=== PATIENT | female | born 1990 | race Caucasian/White ===

== ENCOUNTER 2017-01-20 09:35 | Inpatient (IN) | payer OTHER ==
[~2017-01-20] VITALS: Ht 160 cm; Wt 65.3 kg
[2017-01-20] VITALS (29 sets, daily range): BP systolic 89–137; BP diastolic 38–93; PULSE 73–116; RESP 16–18; TEMP 98.3–98.7; O2SAT 99–100
[~2017-01-20 09:35] MED LIST: FERR325T72 PO; PREN1CAP17 PO
[2017-01-20] MEDS ORDERED: LACTATED RINGER'S 1000 ML INJ 1,000 ML IV PRN (10:21)
--- NOTE | 2017-01-20 10:29 | PD ---
HPI Chief Complaint Contractions Date Seen: January 20, 2017 Time Seen: 10:15 (Stacey Rogers MD R2) Travel History International Travel<30 Days: No Contact w/Intl Traveler<30Days: No Known Affected Area: No (Stacey Rogers MD R2) History of Present Illness HPI Patient is a 26-year-old presenting at 39/3 weeks gestation based on last menstrual period, confirmed by second trimester ultrasound with VALE of 01/24/17 presenting due to contractions. Contractions are occurring every about every 2 minutes, started at 23:30 yesterday evening. She noticed vaginal bleeding about 2hrs ago. She denies leakage of fluid, endorses movement. care is with [facility]. has been uncomplicated. GBS Positive, pt denies any drug allergies. Pt is Arabic speaking. Para: 1 : 2 (Stacey Rogers MD R2) History Past Medical History Medical History: Denies Significant Hx (Stacey Rogers MD R2) Obstetric History Obstetric History First : , 2 years ago, no complications Current : care with [facility], GBS +, No complications (Stacey Rogers MD R2) Past Surgical History Surgical History: No Previous Surgery (Stacey Rogers MD R2) Family History Family History: Negative (Stacey Rogers MD) Social History Alcohol Use: No Tobacco Use: No Substance Abuse: No (Stacey Rogers MD R2) Allergies-Medications (Allergen,Severity, Reaction): Coded Allergies: No Known Allergies (Unverified , 01/14/17) Home Meds Active Scripts Ferrous Gluconate 325 Mg [id number] Mg PO DAILY #30 TAB Ref 6 Prov:Indy Quintero CNM 11/07/16 W/O A W/ Fe Asparto G (Prenate Pixie 10-0.6-0.4-200 mg)1 Cap Cap1 Cap PO DAILY #30 BOTTLE Ref 11 Prov:Indy Quintero CNMP 08/15/16 Review of Systems ROS Limitations: Language Barrier (Stacey Rogers MD R2) Physical Exam Narrative GENERAL: Well-nourished, well-developed patient. SKIN: Warm and dry. HEAD: Normocephalic and atraumatic. EYES: No scleral icterus. No injection or drainage. ENT: No nasal drainage noted. Mucous membranes pink. Airway patent. NECK: Supple, trachea midline. No JVD. CARDIOVASCULAR: Regular rate and rhythm without murmurs, gallops, or rubs. RESPIRATORY: Breath sounds equal bilaterally. No accessory muscle use. BREASTS: Bilateral exam showed no masses , no retractions, no nipple discharge. ABDOMEN/GI: Abdomen soft, non-tender, bowel sounds present, no rebound, no guarding Gravid to 39 weeks size GENITOURINARY: External Genitalia: intact and normal in appearance Cervix: soft Dilatation: 8cm Effacement:80% Station: -1 Presentation: Vertex Membranes: Intact Uterine Contractions: Q2 minutes FHT's: Category: 1 Baseline: 140 Reactive: + Variability: Moderate Decels: Absent EXTREMITIES: No cyanosis or edema. BACK: Nontender without obvious deformity. No CVA tenderness. NEUROLOGICAL: Awake and alert. Motor and sensory grossly within normal limits. Five out of 5 muscle strength in all muscle groups. Normal speech. (Stacey Rogers MD R2) Data Data Orders Admit To Inpatient (01/20/17 ) Code Status (01/20/17 10:21) Vital Signs (Adult) .Per protocol (01/20/17 10:21) Activity Oob Ad Mia (01/20/17 10:21) Heart (01/20/17 10:21) Amnioinfusion (01/20/17 10:21) Urinary Catheter Management .ONCE (01/20/17 10:21) Diet Npo (01/20/17 Lunch) Lactated Ringer's 1000 Ml Inj (Lr 1000 M (01/20/17 10:21) Lactated Ringer's 1000 Ml Inj (Lr 1000 M (01/20/17 10:21) Sodium Chlorid 0.9% 500 Ml Inj (Ns 500 M (01/20/17 10:30) Sodium Chlor 0.9% 1000 Ml Inj (Ns 1000 M (01/20/17 10:41) Lidocaine 1% Inj (50 Ml) (Xylocaine 1% I (01/20/17 10:30) Citric Acid-Sodium Citrate Liq (Bicitra (01/20/17 10:30) Ondansetron Inj (Zofran Inj) (01/20/17 10:30) Fentanyl Inj (Fentanyl Inj) (01/20/17 10:30) Fentanyl Inj (Fentanyl Inj) (01/20/17 10:30) Penicillin G Potassium Inj (Pfizerpen-G (01/20/17 10:30) Penicillin G Potassium Inj (Pfizerpen-G (01/20/17 14:30) Complete Blood Count With Diff (01/20/17 10:21) Hold Clot (01/20/17 10:21) Abo/Rh Blood Type (01/20/17 10:21) Urinalysis - C+S If Indicated (01/20/17 10:21) Type And Screen (01/20/17 10:21) Resp Oxygen Non Rebreathe Mask (01/20/17 ) ^ Epidural / Intrathecal Infus (01/20/17 10:21) Oxytocin 30 Units-500ml Premix (Pitocin (01/20/17 10:30) Lidocaine 1% Inj (50 Ml) (Xylocaine 1% I (01/20/17 10:30) Light Mineral Oil (Muri-Lube Oil) (01/20/17 10:30) Inpatient Certification (01/20/17 ) (Stacey Rogers MD R2) [facility] Medical Record Reviewed: Yes Interpretation(s) Patient is a 26-year-old presenting at 39/3 weeks gestation with VALE of presenting due to contractions. 1) IUP Category 1 tracing, reassuring Cervix dilated to 8cm, -1 station, 80% effaced Pt desires IV pain medication at this time Routine expectant management Anticipate spontaneous vaginal delivery 2) GBS Positive Pt with no reported medication allergies Will start PCN Will admit patient for expectant management sdw Dr. Landaverde (Stacey Rogers MD R2) Attending Attestation Pt seen and evaluated with resident physician. Agree with above. (Cierra Landaverde MD) Stacey Rogers MD R2 January 20, 2017 10:29 Cierra Landaverde MD January 20, 2017 17:03
[2017-01-20] MEDS ORDERED: PENICILLIN G POTASSIUM INJ 5,000,000 UNITS in SODIUM CHLORIDE 0.9% INJ 100 ML IV ONE (10:30)
[2017-01-20] MEDS ORDERED: MINERAL OIL 10 ML VIAL TOPICAL PRN (10:30)
[2017-01-20] MEDS ORDERED: CITRIC ACID-SODIUM CITRATE LIQ 30 ML UDC PO SCH (10:30)
[2017-01-20] MEDS ORDERED: LIDOCAINE HCL 1% 50 ML VIAL I-DERMAL PRN (10:30)
[2017-01-20] MEDS ORDERED: ONDANSETRON HCL 4 MG/2 ML VIAL IV PRN (10:30)
[2017-01-20] MEDS ORDERED: OXYTOCIN 30 UNITS-500ML PREMIX 500 ML IV ONE (10:30)
[2017-01-20] MEDS ORDERED: SODIUM CHLORID 0.9% 500 ML INJ 500 ML IV PRN (10:30)
[2017-01-20] MEDS ORDERED: LIDOCAINE HCL 1% 50 ML VIAL INFIL PRN (10:30)
[2017-01-20] MEDS: LACTATED RINGER'S 1000 ML INJ 1,000 ML IV SCH ×2 (10:41→14:33)
[2017-01-20] MEDS ORDERED: SODIUM CHLOR 0.9% 1000 ML INJ 1,000 ML IV PRN (10:41)
[2017-01-20 11:04] LABS: AUTOMATED NEUTROPHIL # 10.2 TH/MM3 (1.8-7.7); BASOPHIL % 0.2 % (0.0-2.0); EOSINOPHIL % 0.2 % (0.0-4.0); HEMATOCRIT 38.6 % (35.0-46.0); HEMO FLAGS DIFF FINAL; LYMPH % 11.5 % (9.0-44.0); LYMPHOCYTE # 1.4 TH/MM3 (1.0-4.8); MEAN CELL VOLUME 87.2 FL (80.0-100.0); MEAN CORPUSCULAR HEMOGLOBIN 29.1 PG (27.0-34.0); MEAN CORPUSCULAR HGB CONC 33.3 % (32.0-36.0); MONO % 4.3 % (0.0-8.0); NEUT % 83.8 % (16.0-70.0); PLATELET COUNT 141 TH/MM3 (150-450); RED BLOOD COUNT 4.43 MIL/MM3 (4.00-5.30); RED CELL DISTRIBUTION WIDTH 13.8 % (11.6-17.2); WHITE BLOOD COUNT 12.1 TH/MM3 (4.0-11.0)
--- NOTE | 2017-01-20 11:06 | HHI.HP ---
History & Physical H&P Chief Complaint Contractions Date Seen: January 20, 2017 Time Seen: 10:15 Travel History International Travel<30 Days: No Contact w/Intl Traveler<30Days: No Known Affected Area: No History of Present Illness HPI Patient is a 26-year-old presenting at 39/3 weeks gestation based on last menstrual period, confirmed by second trimester ultrasound with VALE of 01/24/17 presenting due to contractions. Contractions are occurring every about every 2 minutes, started at 23:30 yesterday evening. She noticed vaginal bleeding about 2hrs ago. She denies leakage of fluid, endorses movement. care is with [facility]. has been uncomplicated. GBS Positive, pt denies any drug allergies. Pt is [place] Zealander speaking. Para: 1 : 2 History (Limited) History Past Medical History Medical History: Denies Significant Hx Obstetric History Obstetric History First : , 2 years ago, no complications Current : care with [facility], GBS +, No complications Past Surgical History Surgical History: No Previous Surgery Family History Family History: Negative Social History Alcohol Use: No Tobacco Use: No Substance Abuse: No Allergies-Medications Allergies-Medications (Allergen,Severity, Reaction): Coded Allergies: No Known Allergies (Unverified , 01/14/17) Home Meds Active Scripts Ferrous Gluconate 325 Mg [id number] Mg PO DAILY #30 TAB Ref 6 Prov:Indy Quintero CNM [facility] 11/07/16 W/O A W/ Fe Asparto G (Prenate Pixie 10-0.6-0.4-200 mg)1 Cap Cap1 Cap PO DAILY #30 BOTTLE Ref 11 Prov:Indy Quintero CNM [facility] 08/15/16 ROS Review of Systems ROS Limitations: Language Barrier Physical Exam Physical Exam Narrative GENERAL: Well-nourished, well-developed patient. SKIN: Warm and dry. HEAD: Normocephalic and atraumatic. EYES: No scleral icterus. No injection or drainage. ENT: No nasal drainage noted. Mucous membranes pink. Airway patent. NECK: Supple, trachea midline. No JVD. CARDIOVASCULAR: Regular rate and rhythm without murmurs, gallops, or rubs. RESPIRATORY: Breath sounds equal bilaterally. No accessory muscle use. BREASTS: Bilateral exam showed no masses , no retractions, no nipple discharge. ABDOMEN/GI: Abdomen soft, non-tender, bowel sounds present, no rebound, no guarding Gravid to 39 weeks size GENITOURINARY: External Genitalia: intact and normal in appearance Cervix: soft Dilatation: 8cm Effacement:80% Station: -1 Presentation: Vertex Membranes: Intact Uterine Contractions: Q2 minutes FHT's: Category: 1 Baseline: 140 Reactive: + Variability: Moderate Decels: Absent EXTREMITIES: No cyanosis or edema. BACK: Nontender without obvious deformity. No CVA tenderness. NEUROLOGICAL: Awake and alert. Motor and sensory grossly within normal limits. Five out of 5 muscle strength in all muscle groups. Normal speech. Data Data Data Orders Admit To Inpatient (01/20/17 ) Code Status (01/20/17 10:21) Vital Signs (Adult) .Per protocol (01/20/17 10:21) Activity Oob Ad Mia (01/20/17 10:21) Heart (01/20/17 10:21) Amnioinfusion (01/20/17 10:21) Urinary Catheter Management .ONCE (01/20/17 10:21) Diet Npo (01/20/17 Lunch) Lactated Ringer's 1000 Ml Inj (Lr 1000 M (01/20/17 10:21) Lactated Ringer's 1000 Ml Inj (Lr 1000 M (01/20/17 10:21) Sodium Chlorid 0.9% 500 Ml Inj (Ns 500 M (01/20/17 10:30) Sodium Chlor 0.9% 1000 Ml Inj (Ns 1000 M (01/20/17 10:41) Lidocaine 1% Inj (50 Ml) (Xylocaine 1% I (01/20/17 10:30) Citric Acid-Sodium Citrate Liq (Bicitra (01/20/17 10:30) Ondansetron Inj (Zofran Inj) (01/20/17 10:30) Fentanyl Inj (Fentanyl Inj) (01/20/17 10:30) Fentanyl Inj (Fentanyl Inj) (01/20/17 10:30) Penicillin G Potassium Inj (Pfizerpen-G (01/20/17 10:30) Penicillin G Potassium Inj (Pfizerpen-G (01/20/17 14:30) Complete Blood Count With Diff (01/20/17 10:21) Hold Clot (01/20/17 10:21) Abo/Rh Blood Type (01/20/17 10:21) Urinalysis - C+S If Indicated (01/20/17 10:21) Type And Screen (01/20/17 10:21) Resp Oxygen Non Rebreathe Mask (01/20/17 ) ^ Epidural / Intrathecal Infus (01/20/17 10:21) Oxytocin 30 Units-500ml Premix (Pitocin (01/20/17 10:30) Lidocaine 1% Inj (50 Ml) (Xylocaine 1% I (01/20/17 10:30) Light Mineral Oil (Muri-Lube Oil) (01/20/17 10:30) Inpatient Certification (01/20/17 ) MDM MDM Medical Record Reviewed: Yes Interpretation(s) Patient is a 26-year-old presenting at 39/3 weeks gestation with VALE of presenting due to contractions. 1) IUP Category 1 tracing, reassuring Cervix dilated to 8cm, -1 station, 80% effaced Pt desires IV pain medication at this time Routine expectant management Anticipate spontaneous vaginal delivery 2) GBS Positive Pt with no reported medication allergies Will start PCN Will admit patient for expectant management sdw Dr. Landaverde (Stacey Rogers MD R2) H&P Pt seen and examined with the resident physician. Agree with A/P. Admit for delivery Anticipate . (Cierra Landaverde MD) Stacey Rogers MD R2 January 20, 2017 11:06 Cierra Landaverde MD January 20, 2017 17:04
[2017-01-20 11:10] LABS: BLOOD, URINE SMALL (NEG); GLUCOSE,URINE NEG (NEG); KETONE, URINE NEG (NEG); MUCUS URINE FEW /lpf (OCC); NITRITE,URINE NEG (NEG); SQUAMOUS EPITHELIAL CELL URINE <1 /hpf (0-5); URINE COLOR LIGHT-YELLOW (YELLW/STRAW)
[2017-01-20 11:12] LABS: COMMENT (UR) CULT NOT INDICATED; CULTURE IF INDICATED CULT NOT INDICATED
[2017-01-20] MEDS ORDERED: PENICILLIN G POTASSIUM INJ 2,500,000 UNITS in SODIUM CHLORIDE 0.9% INJ 100 ML IV SCH (14:30)
--- NOTE | 2017-01-20 14:55 | PD.LABORPN ---
Subjective Subjective Pt resting in bed, family present at bedside. Pt experiencing moderate pain with contractions which are occurring Q 2-4 minutes. (Stacey Rogers MD R2) Objective Vital Signs Vital Signs Date Time Temp Pulse Resp B/P Pulse Ox O2 Delivery O2 Flow Rate FiO2 01/20/17 14:41 18 01/20/17 14:30 97 130/71 01/20/17 14:00 105 137/86 01/20/17 13:30 92 121/74 01/20/17 13:19 18 01/20/17 13:00 94 126/65 01/20/17 12:30 97 137/90 01/20/17 12:18 18 01/20/17 12:00 103 118/78 01/20/17 11:30 93 115/85 01/20/17 11:00 86 119/73 01/20/17 10:58 18 01/20/17 10:32 105 124/84 Objective Pelvic Exam: Cervix: Midposition Dilatation: 9cm Effacement: 100% Station:0 Presentation: Vertex Membranes: Intact Uterine Contractions: Q1-4 minutes FHT's: Category: 1 Baseline: 140 Reactive: + Variability: Moderate Decels: None (Stacey Rogers MD R2) Assessment/Plan Assessment and Plan 1) IUP Category 1 tracing, reassuring Cervix dilated to 9cm, 0station, 100% effaced Routine expectant management Anticipate spontaneous vaginal delivery Consider amniotomy, membranes still intact 2) GBS Positive Pt has received PCN x1 (started at 10:41), second dose started wdw Dr. Landaverde (Stacey Rogers MD R2) Stacey Rogers MD R2 January 20, 2017 14:55 Cierra Landaverde MD January 20, 2017 17:06
--- NOTE | 2017-01-20 15:14 | PD.LABORPN ---
Subjective Subjective AROM performed at 15:10. Uncomplicated. Clear fluid. (Pankaj Rausch MD R1) Objective Vital Signs Vital Signs Date Time Temp Pulse Resp B/P Pulse Ox O2 Delivery O2 Flow Rate FiO2 01/20/17 15:03 98.3 01/20/17 15:00 105 130/75 01/20/17 14:41 18 01/20/17 14:30 97 130/71 01/20/17 14:00 105 137/86 01/20/17 13:30 92 121/74 01/20/17 13:19 18 01/20/17 13:00 94 126/65 01/20/17 12:30 97 137/90 01/20/17 12:18 18 01/20/17 12:00 103 118/78 01/20/17 11:30 93 115/85 01/20/17 11:00 86 119/73 01/20/17 10:58 18 01/20/17 10:32 105 124/84 Objective Exam: Vitals: wnl General: alert/oriented times 3, resting comfortably in no acute distress. CVS-ext warm and well perfused Pulm-no resp distress Abd- soft, nt/nd Pelvic Exam: Cervix: [mid position] Dilatation: [9cm] Effacement: [100%] Station: [0] Presentation: [vertex] Membranes: [intact, artificially ruptured] Uterine Contractions: [q2-4min] FHT's: Category: [1] Baseline: [140] Reactive: [reactive] Variability: [moderate] Decels: [absent] (Pankaj Rausch MD R1) Assessment/Plan Problem List: (1) Normal Assessment and Plan -AROM performed after discussion with the patient. Clear fluid. uncomplicated. (Pankaj Rausch MD R1) Attestation Pt seen and examined with the resident. Assisted with AROM. (Cierra Landaverde MD) Pankaj Rausch MD R1 January 20, 2017 15:14 Cierra Landaverde MD January 21, 2017 02:41
[2017-01-20] MEDS ORDERED: MEASLES, MUMPS, RUBELLA VACCINE 0.5 ML VIAL SQ ONE (16:00)
[2017-01-20] MEDS ORDERED: DIPHTH/TETANUS/ACEL PERTUSSIS (BOOSTER) 0.5 ML VIAL/PFS IM ONE (16:00)
--- NOTE | 2017-01-20 16:35 | PD.OB.DELI ---
Delivery Date: January 20, 2017 Anesthesia: None Episiotomy: None Vaginal Delivery: Normal Presentation: Occiput anterior Nuchal Cord: x1 Delayed cord clamping (45 sec): Yes Infant: Male One Minute : 8 Five Minute : 9 Weight: 7lb 7oz, 3370g Placenta: Spontaneous delivery, Intact Laceration: Vaginal laceration, 2 deg Repair: Vicryl running Additional Information A total of 20cc of lidocaine was used as local anesthetic. Second degree perineal laceration repaired with 2-0 Vicryl, figure 8 stitch used to reapproximate deep tissue. 3-0 Vicryl running stitch was used to close superficially. Hemostasis was achieved. 3-0 vicryl used to repair superficial periurethral laceration in a figure 8. Hemostasis achieved. Supervised by Dr. Landaverde. Assisted by Dr. Mirta Rogers. (Pankaj Rausch MD R1) Attestation Delivery attended by me personally with the residents. Was at bedside for delivery and repair. (Cierra Landaverde MD) Pankaj Rausch MD R1 January 20, 2017 16:35 Cierra Landaverde MD January 21, 2017 02:44
[2017-01-20] MEDS ORDERED: BENZOCAINE 20% TOPICAL SPRAY 60 ML CAN TOPICAL PRN (16:45)
[2017-01-20] MEDS ORDERED: oxyCODONE/ACETAMINOPHEN 5 MG/325 MG TAB PO PRN ×2 (16:45)
[2017-01-20] MEDS ORDERED: ZOLPIDEM TARTRATE 5 MG TAB PO PRN (16:45)
[2017-01-20] MEDS ORDERED: SODIUM CHLORIDE 0.9% FLUSH 10 ML FLUSH IV FLUSH PRN (16:45)
[2017-01-20] MEDS ORDERED: ACETAMINOPHEN 325 MG TAB PO PRN (16:45)
[2017-01-20] MEDS ORDERED: ALUMINUM/MAGNESIUM/SIMETH 30 ML CUP PO PRN (16:45)
[2017-01-20] MEDS ORDERED: DOCUSATE SODIUM 50 MG/SENNA 8.6 MG TAB PO PRN (16:45)
[2017-01-20] MEDS ORDERED: ONDANSETRON ODT 4 MG TAB PO PRN (16:45)
[2017-01-20] MEDS: IBUPROFEN 600 MG TAB PO PRN ×2 (17:03→23:26)
[2017-01-20] MEDS ORDERED: SODIUM CHLORIDE 0.9% FLUSH 10 ML FLUSH IV FLUSH SCH (21:00)
[2017-01-20] MEDS: WITCH HAZEL 50%/GLYCERIN 12.5% 40 PAD JAR TOPICAL PRN (21:10)
[2017-01-21] MEDS: IBUPROFEN 600 MG TAB PO PRN ×2 (05:47→16:58)
[2017-01-21 08:00] VITALS: BP 103/57; PULSE 72; RESP 18; TEMP 98.2
--- NOTE | 2017-01-21 08:35 | HHI.OB ---
Subjective Post Day: 1 Remarks Pt seen and examined this morning. day # 1 AFVSS overnight. Decreased lochia. Denies dysuria. No breast tenderness. She is feeding the baby via breast and bottle. Appetite good. No nausea or vomiting. Patient has not yet had a bowel movement. + flatus. Ambulating well. Denies calf pain or shortness of breath. Otherwise, she is doing well this morning and has no other concerns. (Stacey Rogers MD R2) Objective Vitals/I&O Vital Signs Date Time Temp Pulse Resp B/P Pulse Ox O2 Delivery O2 Flow Rate FiO2 01/21/17 08:00 72 01/21/17 08:00 98.2 18 01/21/17 08:00 103/57 01/21/17 06:47 18 01/20/17 18:11 98.7 73 16 114/57 01/20/17 17:15 86 100/44 01/20/17 17:15 18 01/20/17 17:02 79 101/51 01/20/17 17:01 93 89/38 01/20/17 16:59 80 106/69 01/20/17 16:59 18 01/20/17 16:45 98.6 01/20/17 16:45 18 01/20/17 16:30 94 110/60 01/20/17 16:28 18 01/20/17 16:17 91 114/56 01/20/17 16:03 18 01/20/17 16:00 98 123/69 01/20/17 15:45 109 123/59 01/20/17 15:35 111 128/93 99 01/20/17 15:35 116 01/20/17 15:30 113 100 01/20/17 15:03 98.3 01/20/17 15:00 105 130/75 01/20/17 14:41 18 01/20/17 14:30 97 130/71 01/20/17 14:00 105 137/86 01/20/17 13:30 92 121/74 01/20/17 13:19 18 01/20/17 13:00 94 126/65 01/20/17 12:30 97 137/90 01/20/17 12:18 18 01/20/17 12:00 103 118/78 01/20/17 11:30 93 115/85 01/20/17 11:00 86 119/73 01/20/17 10:58 18 01/20/17 10:32 105 124/84 Objective Remarks GENERAL: Well-nourished, well-developed patient. CARDIOVASCULAR: Regular rate and rhythm without murmurs, gallops, or rubs. RESPIRATORY: Breath sounds equal bilaterally. No accessory muscle use. ABDOMEN/GI: Abdomen soft, non-tender. Fundus: Firm, non-tender at umbilicus. GENITOURINARY: Light to moderate bleeding. EXTREMITIES: No cyanosis or edema, non-tender, without signs of DVT. Medications and IVs Current Medications Medications (Trade) Dose Ordered Sig/Jackson Route Start Time Stop Time Status Last Admin (NS Flush) 2 ml BID IV FLUSH 01/20/17 21:00 (NS Flush) 2 ml UNSCH PRN IV FLUSH 01/20/17 16:45 (Tylenol) 650 mg Q4H PRN PO 01/20/17 16:45 (Motrin) 600 mg Q6H PRN PO 01/20/17 16:45 01/21/17 05:47 (Percocet 5-325 Mg) 1 tab Q4H PRN PO 01/20/17 16:45 (Percocet 5-325 Mg) 2 tab Q4H PRN PO 01/20/17 16:45 (Americaine 20% Top Spr) 1 spray Q4H PRN TOPICAL 01/20/17 16:45 01/20/17 21:10 (Tucks Pads) 1 applic QID PRN TOPICAL 01/20/17 16:45 01/20/17 21:10 (Sveta-Colace) 2 tab Q12H PRN PO 01/20/17 16:45 (Ambien) 5 mg HS PRN PO 01/20/17 16:45 (Mag-Al Plus Susp Liq) 15 ml Q8H PRN PO 01/20/17 16:45 (Zofran Odt) 4 mg Q6H PRN PO 01/20/17 16:45 (Stacey Rogers MD R2) Assessment/Plan Problem List: (1) Normal Assessment and Plan 26 y/o female who is PPD# 1 s/p . -Continue routine care. -Percocet and Motrin PRN pain. -Encouraged OOB. Advised pelvic rest for 6 wks. -Re: she is not interested in prescription control at this time. -Anticipate discharge tomorrow. dw Dr. Saima MD (Stacey Rogers MD R2) Attending Attestation Agree with above. D/c home tomorrow. (Cierra Landaverde MD) Stacey Rogers MD R2 January 21, 2017 08:35 Cierra Landaverde MD January 21, 2017 09:36
[2017-01-21 20:40] VITALS: BP 100/57; PULSE 84; RESP 18; TEMP 97.9
[2017-01-22] MEDS: IBUPROFEN 600 MG TAB PO PRN ×2 (02:19→10:22)
[2017-01-22] MEDS: WITCH HAZEL 50%/GLYCERIN 12.5% 40 PAD JAR TOPICAL PRN (05:59)
[2017-01-22 07:40] VITALS: BP 96/57; PULSE 67; RESP 16; TEMP 98.2
--- NOTE | 2017-01-22 07:48 | HHI.OB ---
Subjective Post Day: 2 Remarks Patient is a 26-year-old delivered at 39 weeks and 0 days. Patient is day 2 after . Patient's pain is well-controlled. Patient reports eating and drinking without any nausea or vomiting. Patient reports minimal bleeding. Patient has passed gas but no bowel movements. Patient is walking without lower extremity pain or shortness of breath. Patient reports desire for contraception through her primary care doctor and both bottle- and breast- feeding. (Pankaj Rausch MD R1) Objective Vitals/I&O Vital Signs Date Time Temp Pulse Resp B/P Pulse Ox O2 Delivery O2 Flow Rate FiO2 01/22/17 03:19 16 01/21/17 20:40 97.9 18 01/21/17 20:40 84 100/57 01/21/17 08:00 72 01/21/17 08:00 98.2 18 01/21/17 08:00 103/57 Objective Remarks GENERAL: Well-nourished, well-developed patient. CARDIOVASCULAR: Regular rate and rhythm without murmurs, gallops, or rubs. RESPIRATORY: Breath sounds equal bilaterally. No accessory muscle use. ABDOMEN/GI: Abdomen soft, non-tender. Fundus: Firm, non-tender at umbilicus. GENITOURINARY: Light bleeding. EXTREMITIES: No cyanosis or edema, non-tender, without signs of DVT. Medications and IVs Current Medications Medications (Trade) Dose Ordered Sig/Jackson Route Start Time Stop Time Status Last Admin (NS Flush) 2 ml BID IV FLUSH 01/20/17 21:00 (NS Flush) 2 ml UNSCH PRN IV FLUSH 01/20/17 16:45 (Tylenol) 650 mg Q4H PRN PO 01/20/17 16:45 (Motrin) 600 mg Q6H PRN PO 01/20/17 16:45 01/22/17 02:19 (Percocet 5-325 Mg) 1 tab Q4H PRN PO 01/20/17 16:45 (Percocet 5-325 Mg) 2 tab Q4H PRN PO 01/20/17 16:45 (Americaine 20% Top Spr) 1 spray Q4H PRN TOPICAL 01/20/17 16:45 01/20/17 21:10 (Tucks Pads) 1 applic QID PRN TOPICAL 01/20/17 16:45 01/22/17 05:59 (Sveta-Colace) 2 tab Q12H PRN PO 01/20/17 16:45 (Ambien) 5 mg HS PRN PO 01/20/17 16:45 (Mag-Al Plus Susp Liq) 15 ml Q8H PRN PO 01/20/17 16:45 (Zofran Odt) 4 mg Q6H PRN PO 01/20/17 16:45 (Pankaj Rausch MD R1) Assessment/Plan Problem List: (1) Normal Assessment and Plan 26 y/o female who is PPD# 2 s/p . -Continue routine care. -Percocet and Motrin PRN pain. -Encouraged OOB. Advised pelvic rest for 6 wks. -she is not interested in prescription control at this time; she will get contraception through her primary physician -Anticipate discharge today. dw Dr. Lenard MD Discharge Planning Anticipate discharge today (Pankaj Rausch MD R1) Collaborating MD Comments agree with assessment and care. (Mary Weinberg MD) Pankaj Rausch MD R1 January 22, 2017 07:48 Mary Weinberg MD January 22, 2017 09:47
--- NOTE | 2017-01-22 08:47 | HHI.DCPOC ---
Discharge Care Plan Diagnosis: (1) Normal Report Symptoms to Your Doctor -Temperature above 100.5 degrees -Redness or excessive or foul smelling drainage -Unusual pain or calf pain or shortness of breath or chest pain -Increased vaginal bleeding -Painful or difficulty urinating -Feelings of extreme sadness or anxiety after 2 weeks Goals to Promote Your Health * To prevent worsening of your condition and complications, please follow up with your doctor within 6 weeks. * To maintain your health at the optimal level, please take medications as prescribed, stay well hydrated, eat a balanced diet, and exercise regularly. Directions to Meet Your Goals Take your medications as prescribed Follow your dietary instruction Follow activity as directed Ensure plenty of rest for recovery Drink fluids for hydration Keep your appointments as scheduled Take your immunizations and boosters as scheduled If your symptoms worsen call your PCP, if no PCP go to Urgent Care Center or Emergency Room Smoking is Dangerous to Your Health. Avoid second hand smoke Call the 24-hour crisis hotline for domestic abuse at Pankaj Rausch MD R1 January 22, 2017 08:47
[2017-03-03] MEDS ORDERED: PROC2.5C RECTAL (10:31)
== END 2017-01-22 10:56 | disposition home or self-care (01) | DRG 775 ==
LOC: HOBED 09:35 → H2EA 10:34 → H1EA 17:40
PROVIDERS: ADMIT Obstetrics & Gynecology; ATTEND Obstetrics & Gynecology
PROC: 10E0XZZ Delivery of Products of Conception, External Approach (ICD-10-PCS; principal; 2017-01-20)
PROC: 0KQM0ZZ Repair Perineum Muscle, Open Approach (ICD-10-PCS; 2017-01-20)
PROC: 0UQMXZZ Repair Vulva, External Approach (ICD-10-PCS; 2017-01-20)
PROC: 10907ZC Drainage of Amniotic Fluid, Therapeutic from Products of Conception, Via Natural or Artificial Opening (ICD-10-PCS; 2017-01-20)
DX: O99.824 Streptococcus B carrier state complicating childbirth (principal); O69.81X0 Labor and delivery complicated by cord around neck, without compression, not applicable or unspecified; O70.1 Second degree perineal laceration during delivery; O71.82 Other specified trauma to perineum and vulva; Z3A.39 39 weeks gestation of pregnancy; Z37.0 Single live birth
CPT/HCPCS: 81001; 85025; 86850; 86900; 86901; 90715; 99285; J2540; J2590; J3010; J7120